=== PATIENT | male | born 1960 | race Caucasian/White ===

== ENCOUNTER 2024-04-23 11:40 | Inpatient (IN) | payer MEDICAID, OTHER ==
[~2024-04-23] VITALS: Ht 182.9 cm; Wt 74.4 kg
[2024-04-23 12:16] LABS: CARBON DIOXIDE 28 mmol/L (21-32); CHLORIDE 107 mmol/L (98-107); CREATININE 0.8 mg/dL (0.6-1.3); GLUCOSE 125 mg/dL (74-106); POTASSIUM 4.1 mmol/L (3.5-5.1); SODIUM SERUM 141 mmol/L (136-145); UREA NITROGEN, BLOOD 16 mg/dL (7-18)
[2024-04-23 12:19] LABS: BASOPHILS % (AUTO) 0.4 % (0.0-2.0); EOSINOPHILS # (AUTO) 0.2 K/uL (0.0-0.7); EOSINOPHILS % (AUTO) 4.3 % (0.0-6.0); HEMATOCRIT 44 % (39-51); HEMOGLOBIN 14.7 g/dL (13.5-17.5); LYMPHOCYTES # (AUTO) 2.3 K/uL (0.8-4.8); LYMPHOCYTES % (AUTO) 44.9 % (20.0-44.0); MEAN CORPUSCULAR HEMOGLOBIN 30 PG (26.0-33.0); MEAN CORPUSCULAR HGB CONC 34 g/dl (31.0-36.0); MEAN CORPUSCULAR VOLUME 90 fL (80-96); MONOCYTES # (AUTO) 0.6 K/uL (0.1-1.30); NEUTROPHILS % (AUTO) 39.4 % (43.0-81.0); PLATELET COUNT (AUTO) 219 K/uL (150-450); RED BLOOD CELL COUNT(AUTO) 4.86 MIL/uL (4.5-6.0); RED CELL DISTRIBUTION WIDTH 14.4 % (11.5-15.0); WHITE BLOOD COUNT (AUTO) 5.1 K/uL (4.3-11.0)
[2024-04-23 12:30] LABS: ALANINE AMINOTRANSFERASE 20 U/L (12-78); ALBUMIN 3.6 g/dL (3.4-5.0); ALKALINE PHOSPHATASE 60 U/L (46-116); ASPARTATE AMINOTRANSFERASE 17 U/L (15-37); BILIRUBIN,DIRECT 0.2 mg/dL (0.0-0.2); BILIRUBIN,TOTAL 0.8 mg/dL (0.2-1.0); NT-PRO BNP 53 pg/mL (0-125); TOTAL PROTEIN, SERUM 7.3 g/dL (6.4-8.2)
[2024-04-23] MEDS ORDERED: BISO5TAB20 PO (13:13)
[2024-04-23] MEDS ORDERED: CLOP75TA15 PO (13:13)
[2024-04-23] MEDS ORDERED: [UNRECOGNIZED DRUG - OTHER] PO (13:13)
[2024-04-23 13:20] VITALS: BP 119/90; TEMP 98.4; O2SAT 97
[2024-04-23] MEDS ORDERED: ONDANSETRON HCL/PF 4 MG/2 ML VIAL IVP PRN (14:30)
[2024-04-23] MEDS ORDERED: ZOLPIDEM TARTRATE 5 MG TABLET PO PRN (14:30)
[2024-04-23] MEDS ORDERED: MAG HYDROX/AL HYDROX/SIMETH 30 ML UDC PO PRN (14:30)
[2024-04-23] MEDS ORDERED: Z GUARD REMEDY 4 OZ OINT TP PRN (14:30)
[2024-04-23] MEDS ORDERED: ACETAMINOPHEN 325 MG TABLET PO PRN (14:30)
[2024-04-23] MEDS ORDERED: MAGNESIUM HYDROXIDE 30 ML UDC PO PRN (14:30)
[2024-04-23 16:00] VITALS: BP 111/73; TEMP 97.3; O2SAT 96
[2024-04-23 20:10] VITALS: BP 121/76; TEMP 97.9; O2SAT 99
[2024-04-23] MEDS: ENOXAPARIN SODIUM 40 MG/0.4 ML DISP.SYRIN SQ SCH (21:35)
[2024-04-24 00:06] VITALS: BP 113/72; TEMP 98.4; O2SAT 97
[2024-04-24 04:05] VITALS: BP 112/72; TEMP 98.2; O2SAT 98
[2024-04-24 06:33] LABS: BASOPHILS % (AUTO) 0.8 % (0.0-2.0); EOSINOPHILS # (AUTO) 0.3 K/uL (0.0-0.7); EOSINOPHILS % (AUTO) 6.1 % (0.0-6.0); HEMATOCRIT 42 % (39-51); HEMOGLOBIN 14.2 g/dL (13.5-17.5); LYMPHOCYTES # (AUTO) 1.9 K/uL (0.8-4.8); LYMPHOCYTES % (AUTO) 42.2 % (20.0-44.0); MEAN CORPUSCULAR HEMOGLOBIN 30 PG (26.0-33.0); MEAN CORPUSCULAR HGB CONC 34 g/dl (31.0-36.0); MEAN CORPUSCULAR VOLUME 89 fL (80-96); MONOCYTES # (AUTO) 0.5 K/uL (0.1-1.30); MONOCYTES % (AUTO) 11.6 % (2.0-12.0); NEUTROPHILS # (AUTO) 1.7 K/uL (1.8-8.9); NEUTROPHILS % (AUTO) 39.3 % (43.0-81.0); PLATELET COUNT (AUTO) 211 K/uL (150-450); RED BLOOD CELL COUNT(AUTO) 4.76 MIL/uL (4.5-6.0); RED CELL DISTRIBUTION WIDTH 14.4 % (11.5-15.0); WHITE BLOOD COUNT (AUTO) 4.4 K/uL (4.3-11.0)
[2024-04-24 06:55] LABS: THYROID STIMULATING HORMONE 1.31 uIU/mL (0.358-3.74)
[2024-04-24 07:00] LABS: CALCIUM, SERUM 8.5 mg/dL (8.5-10.1); CREATININE 0.8 mg/dL (0.6-1.3); MAGNESIUM 2.5 mg/dL (1.8-2.4); PHOSPHORUS 3.1 mg/dL (2.5-4.9); POTASSIUM 4.6 mmol/L (3.5-5.1)
[2024-04-24 07:30] VITALS: BP 134/96; TEMP 98.6; O2SAT 96
[2024-04-24] MEDS: PANTOPRAZOLE 40 MG TABLET.DR PO SCH (07:58)
[2024-04-24] MEDS: RIVAROXABAN 10 MG TABLET PO SCH (10:00)
[2024-04-24] MEDS: ATORVASTATIN 10 MG TABLET PO SCH (10:22)
[2024-04-24] MEDS: CLOPIDOGREL BISULFATE 75 MG TABLET PO SCH (10:22)
[2024-04-24 16:00] VITALS: BP 117/76; TEMP 97.3; O2SAT 94
[2024-04-24] MEDS ORDERED: IOHEXOL-350 100 ML VIAL IV ONE (16:40)
[2024-04-24] MEDS ORDERED: CT SWABBABLE VALVE TRANS SET 1 EA INFUS.SET MC ONE (16:41)
[2024-04-24] MEDS ORDERED: IV NS 0.9% 500 ML IV ONE (16:41)
[2024-04-24] MEDS ORDERED: METOPROLOL TARTRATE INJ 5 MG/5 ML AMPUL ONE (16:45)
[2024-04-24] MEDS: METOPROLOL TARTRATE INJ 5 MG/5 ML AMPUL IVP PRN (16:48)
[2024-04-24] MEDS: NITROGLYCERIN 0.4 MG/TAB BOTTLE SL ONE (16:50)
[2024-04-24 20:00] VITALS: BP 124/79; TEMP 97.5; O2SAT 96
[2024-04-25] VITALS: BP 102/63; TEMP 97.9; O2SAT 98
[2024-04-25 04:00] VITALS: BP 100/61; TEMP 97.7; O2SAT 97
[2024-04-25 07:38] LABS: BASOPHILS % (AUTO) 0.5 % (0.0-2.0); EOSINOPHILS # (AUTO) 0.2 K/uL (0.0-0.7); EOSINOPHILS % (AUTO) 5.5 % (0.0-6.0); HEMATOCRIT 42 % (39-51); LYMPHOCYTES # (AUTO) 1.4 K/uL (0.8-4.8); LYMPHOCYTES % (AUTO) 37.2 % (20.0-44.0); MEAN CORPUSCULAR HEMOGLOBIN 29 PG (26.0-33.0); MEAN CORPUSCULAR HGB CONC 33 g/dl (31.0-36.0); MEAN CORPUSCULAR VOLUME 89 fL (80-96); MONOCYTES # (AUTO) 0.4 K/uL (0.1-1.30); MONOCYTES % (AUTO) 10.2 % (2.0-12.0); NEUTROPHILS # (AUTO) 1.8 K/uL (1.8-8.9); NEUTROPHILS % (AUTO) 46.6 % (43.0-81.0); PLATELET COUNT (AUTO) 208 K/uL (150-450); RED BLOOD CELL COUNT(AUTO) 4.77 MIL/uL (4.5-6.0); RED CELL DISTRIBUTION WIDTH 14.2 % (11.5-15.0); WHITE BLOOD COUNT (AUTO) 3.8 K/uL (4.3-11.0)
[2024-04-25 08:00] VITALS: BP 101/75; TEMP 97.9; O2SAT 97
[2024-04-25] MEDS: ATENOLOL 50 MG TABLET PO SCH (08:56)
[2024-04-25 09:22] LABS: CALCIUM, SERUM 8.5 mg/dL (8.5-10.1); CREATININE 0.8 mg/dL (0.6-1.3); MAGNESIUM 2.3 mg/dL (1.8-2.4); PHOSPHORUS 3.4 mg/dL (2.5-4.9); POTASSIUM 4.1 mmol/L (3.5-5.1)
[2024-04-25 16:00] VITALS: BP 132/87; TEMP 98; O2SAT 94
[2024-04-25 20:00] VITALS: BP 113/84; TEMP 97.9; O2SAT 96
[2024-04-26] VITALS (14 sets, daily range): BP systolic 102–143; BP diastolic 66–102; TEMP 97–98.4; O2SAT 94–98
[2024-04-26] MEDS: ATORVASTATIN 40 MG TABLET PO SCH (08:28)
[2024-04-26 09:31] LABS: BASOPHILS % (AUTO) 0.5 % (0.0-2.0); EOSINOPHILS # (AUTO) 0.2 K/uL (0.0-0.7); EOSINOPHILS % (AUTO) 4.7 % (0.0-6.0); HEMATOCRIT 45 % (39-51); HEMOGLOBIN 15.1 g/dL (13.5-17.5); LYMPHOCYTES # (AUTO) 1.3 K/uL (0.8-4.8); LYMPHOCYTES % (AUTO) 36.3 % (20.0-44.0); MEAN CORPUSCULAR HEMOGLOBIN 30 PG (26.0-33.0); MEAN CORPUSCULAR HGB CONC 33 g/dl (31.0-36.0); MEAN CORPUSCULAR VOLUME 89 fL (80-96); MONOCYTES # (AUTO) 0.4 K/uL (0.1-1.30); MONOCYTES % (AUTO) 9.9 % (2.0-12.0); NEUTROPHILS # (AUTO) 1.8 K/uL (1.8-8.9); NEUTROPHILS % (AUTO) 48.6 % (43.0-81.0); PLATELET COUNT (AUTO) 237 K/uL (150-450); RED BLOOD CELL COUNT(AUTO) 5.11 MIL/uL (4.5-6.0); RED CELL DISTRIBUTION WIDTH 14.5 % (11.5-15.0); WHITE BLOOD COUNT (AUTO) 3.7 K/uL (4.3-11.0)
[2024-04-26 09:40] LABS: CALCIUM, SERUM 9.1 mg/dL (8.5-10.1); CREATININE 0.8 mg/dL (0.6-1.3); POTASSIUM 4.7 mmol/L (3.5-5.1)
[2024-04-26 09:50] LABS: PROTHROMBIN TIME 10.6 SECS (9.2-11.1)
[2024-04-26] MEDS: ADENOSINE 6 MG/2 ML VIAL IVP ONE ×2 (18:30→18:45)
[2024-04-26] MEDS ORDERED: MORPHINE SULFATE INJ 2 MG/ML DISP.SYRIN IV PRN (19:00)
[2024-04-26] MEDS: AMIODARONE 150 MG in IV D5W 100 ML IV ONE (19:16)
[2024-04-26] MEDS: AMIODARONE 450 MG in IV D5W 241 ML IV PRN (19:20)
[2024-04-27] VITALS (35 sets, daily range): BP systolic 97–130; BP diastolic 69–95; TEMP 97.2–98.6; O2SAT 96–100
[2024-04-27 04:59] LABS: BASOPHILS % (AUTO) 0.8 % (0.0-2.0); EOSINOPHILS # (AUTO) 0.2 K/uL (0.0-0.7); EOSINOPHILS % (AUTO) 2.9 % (0.0-6.0); HEMATOCRIT 44 % (39-51); HEMOGLOBIN 14.7 g/dL (13.5-17.5); LYMPHOCYTES # (AUTO) 1.6 K/uL (0.8-4.8); LYMPHOCYTES % (AUTO) 28.9 % (20.0-44.0); MEAN CORPUSCULAR HEMOGLOBIN 30 PG (26.0-33.0); MEAN CORPUSCULAR HGB CONC 34 g/dl (31.0-36.0); MEAN CORPUSCULAR VOLUME 88 fL (80-96); MONOCYTES # (AUTO) 0.6 K/uL (0.1-1.30); MONOCYTES % (AUTO) 10.4 % (2.0-12.0); NEUTROPHILS # (AUTO) 3.1 K/uL (1.8-8.9); PLATELET COUNT (AUTO) 220 K/uL (150-450); RED BLOOD CELL COUNT(AUTO) 4.95 MIL/uL (4.5-6.0); RED CELL DISTRIBUTION WIDTH 14.2 % (11.5-15.0); WHITE BLOOD COUNT (AUTO) 5.4 K/uL (4.3-11.0)
[2024-04-27 05:12] LABS: CREATININE 0.9 mg/dL (0.6-1.3); MAGNESIUM 2.5 mg/dL (1.8-2.4); PHOSPHORUS 3.7 mg/dL (2.5-4.9); POTASSIUM 4.4 mmol/L (3.5-5.1)
[2024-04-28] VITALS (36 sets, daily range): BP systolic 77–129; BP diastolic 40–90; TEMP 97.1–98.1; O2SAT 95–100
[2024-04-28 04:56] LABS: BASOPHILS # (AUTO) 0.1 K/uL (0.0-0.2); BASOPHILS % (AUTO) 1.1 % (0.0-2.0); EOSINOPHILS # (AUTO) 0.3 K/uL (0.0-0.7); EOSINOPHILS % (AUTO) 5.6 % (0.0-6.0); HEMATOCRIT 44 % (39-51); HEMOGLOBIN 14.5 g/dL (13.5-17.5); LYMPHOCYTES # (AUTO) 1.4 K/uL (0.8-4.8); LYMPHOCYTES % (AUTO) 27.7 % (20.0-44.0); MEAN CORPUSCULAR HEMOGLOBIN 30 PG (26.0-33.0); MEAN CORPUSCULAR HGB CONC 33 g/dl (31.0-36.0); MEAN CORPUSCULAR VOLUME 89 fL (80-96); MONOCYTES # (AUTO) 0.6 K/uL (0.1-1.30); MONOCYTES % (AUTO) 11.3 % (2.0-12.0); NEUTROPHILS # (AUTO) 2.8 K/uL (1.8-8.9); NEUTROPHILS % (AUTO) 54.3 % (43.0-81.0); PLATELET COUNT (AUTO) 212 K/uL (150-450); RED BLOOD CELL COUNT(AUTO) 4.92 MIL/uL (4.5-6.0); RED CELL DISTRIBUTION WIDTH 14.3 % (11.5-15.0); WHITE BLOOD COUNT (AUTO) 5.2 K/uL (4.3-11.0)
[2024-04-28 05:25] LABS: CALCIUM, SERUM 8.7 mg/dL (8.5-10.1); CREATININE 0.8 mg/dL (0.6-1.3); MAGNESIUM 2.4 mg/dL (1.8-2.4); PHOSPHORUS 3.6 mg/dL (2.5-4.9); POTASSIUM 4.1 mmol/L (3.5-5.1)
[2024-04-28] MEDS: AMIODARONE HCL 200 MG TABLET PO SCH (08:28)
[2024-04-28] MEDS: ENOXAPARIN SODIUM 80 MG/0.8 ML DISP.SYRIN SQ SCH (08:30)
[2024-04-29] VITALS: BP 110/66; TEMP 97.9; O2SAT 97
[2024-04-29 04:00] VITALS: BP 115/71; TEMP 97.7; O2SAT 95
[2024-04-29 06:42] LABS: BASOPHILS % (AUTO) 0.6 % (0.0-2.0); EOSINOPHILS # (AUTO) 0.3 K/uL (0.0-0.7); EOSINOPHILS % (AUTO) 5.2 % (0.0-6.0); HEMATOCRIT 43 % (39-51); HEMOGLOBIN 14.4 g/dL (13.5-17.5); LYMPHOCYTES # (AUTO) 1.8 K/uL (0.8-4.8); LYMPHOCYTES % (AUTO) 37.1 % (20.0-44.0); MEAN CORPUSCULAR HEMOGLOBIN 29 PG (26.0-33.0); MEAN CORPUSCULAR HGB CONC 34 g/dl (31.0-36.0); MEAN CORPUSCULAR VOLUME 88 fL (80-96); MONOCYTES # (AUTO) 0.6 K/uL (0.1-1.30); MONOCYTES % (AUTO) 11.7 % (2.0-12.0); NEUTROPHILS # (AUTO) 2.2 K/uL (1.8-8.9); NEUTROPHILS % (AUTO) 45.4 % (43.0-81.0); PLATELET COUNT (AUTO) 216 K/uL (150-450); RED CELL DISTRIBUTION WIDTH 14.2 % (11.5-15.0); WHITE BLOOD COUNT (AUTO) 4.8 K/uL (4.3-11.0)
[2024-04-29 07:21] LABS: MAGNESIUM 2.4 mg/dL (1.8-2.4); PHOSPHORUS 3.7 mg/dL (2.5-4.9); POTASSIUM 4.3 mmol/L (3.5-5.1)
[2024-04-29 08:00] VITALS: BP 113/78; TEMP 98.2; O2SAT 94
[2024-04-29 12:00] VITALS: BP 138/82; TEMP 98; O2SAT 96
[2024-04-29 16:00] VITALS: BP 123/77; TEMP 97.9; O2SAT 97
[2024-04-29 20:00] VITALS: BP 129/79; TEMP 98.6; O2SAT 96
[2024-04-30] VITALS: BP 103/74; TEMP 98.6; O2SAT 97
[2024-04-30 04:00] VITALS: BP 122/81; TEMP 98.7; O2SAT 98
[2024-04-30 08:00] VITALS: BP 117/71; TEMP 98.2; O2SAT 95
[2024-04-30 12:00] VITALS: BP 121/76; TEMP 97.4; O2SAT 95
[2024-04-30 13:39] LABS: BASOPHILS % (AUTO) 0.5 % (0.0-2.0); EOSINOPHILS # (AUTO) 0.1 K/uL (0.0-0.7); EOSINOPHILS % (AUTO) 2.4 % (0.0-6.0); HEMATOCRIT 43 % (39-51); HEMOGLOBIN 14.7 g/dL (13.5-17.5); LYMPHOCYTES % (AUTO) 38.9 % (20.0-44.0); MEAN CORPUSCULAR HEMOGLOBIN 30 PG (26.0-33.0); MEAN CORPUSCULAR HGB CONC 34 g/dl (31.0-36.0); MEAN CORPUSCULAR VOLUME 88 fL (80-96); MONOCYTES # (AUTO) 0.5 K/uL (0.1-1.30); MONOCYTES % (AUTO) 9.1 % (2.0-12.0); NEUTROPHILS # (AUTO) 2.5 K/uL (1.8-8.9); NEUTROPHILS % (AUTO) 49.1 % (43.0-81.0); PLATELET COUNT (AUTO) 258 K/uL (150-450); RED BLOOD CELL COUNT(AUTO) 4.93 MIL/uL (4.5-6.0); RED CELL DISTRIBUTION WIDTH 14.2 % (11.5-15.0); WHITE BLOOD COUNT (AUTO) 5.2 K/uL (4.3-11.0)
[2024-04-30 13:59] LABS: CALCIUM, SERUM 9.1 mg/dL (8.5-10.1); CREATININE 1.1 mg/dL (0.6-1.3); POTASSIUM 4.5 mmol/L (3.5-5.1)
[2024-04-30 14:20] LABS: MAGNESIUM 2.3 mg/dL (1.8-2.4); PHOSPHORUS 3.4 mg/dL (2.5-4.9)
[2024-04-30 16:00] VITALS: BP 123/84; TEMP 98.3; O2SAT 96
[2024-04-30] MEDS: ASPIRIN 81 MG TAB.CHEW PO SCH (17:18)
[2024-04-30 20:00] VITALS: BP 108/66; TEMP 98.2; O2SAT 95
[2024-05-01] VITALS (7 sets, daily range): BP systolic 102–122; BP diastolic 64–70; TEMP 97.5–98.1; O2SAT 96–98
[2024-05-01 07:37] LABS: BASOPHILS % (AUTO) 0.7 % (0.0-2.0); EOSINOPHILS # (AUTO) 0.2 K/uL (0.0-0.7); EOSINOPHILS % (AUTO) 3.9 % (0.0-6.0); HEMATOCRIT 43 % (39-51); HEMOGLOBIN 14.4 g/dL (13.5-17.5); LYMPHOCYTES # (AUTO) 1.6 K/uL (0.8-4.8); LYMPHOCYTES % (AUTO) 35.8 % (20.0-44.0); MEAN CORPUSCULAR HEMOGLOBIN 30 PG (26.0-33.0); MEAN CORPUSCULAR HGB CONC 34 g/dl (31.0-36.0); MEAN CORPUSCULAR VOLUME 88 fL (80-96); MONOCYTES # (AUTO) 0.5 K/uL (0.1-1.30); MONOCYTES % (AUTO) 10.6 % (2.0-12.0); NEUTROPHILS # (AUTO) 2.2 K/uL (1.8-8.9); PLATELET COUNT (AUTO) 224 K/uL (150-450); RED BLOOD CELL COUNT(AUTO) 4.82 MIL/uL (4.5-6.0); RED CELL DISTRIBUTION WIDTH 14.1 % (11.5-15.0); WHITE BLOOD COUNT (AUTO) 4.4 K/uL (4.3-11.0)
[2024-05-01 07:45] LABS: INR 1.02 (0.91-1.10); PARTIAL THROMBOPLASTIN TIME 26.3 SEC (24.3-34.3); POTASSIUM 4.2 mmol/L (3.5-5.1); PROTHROMBIN TIME 10.8 SECS (9.2-11.1)
[2024-05-01] MEDS ORDERED: IV NS 0.9% 1,000 ML ONE (11:24)
[2024-05-01] MEDS ORDERED: IV SET PRIMARY PUMP SET 1 EA INFUS.SET MC ONE (11:24)
[2024-05-01] MEDS ORDERED: IODIXANOL 150 ML IV ONE (11:25)
[2024-05-01] MEDS ORDERED: NITROGLYCERIN IN 5 % DEXTROSE 250 ML IV ONE (11:25)
[2024-05-01] MEDS ORDERED: LIDOCAINE HCL/MPF 1% 30 ML VIAL IJ ONE (11:39)
[2024-05-01] MEDS ORDERED: MIDAZOLAM HCL 2 MG/2ML VIAL ONE (12:39)
[2024-05-01] MEDS ORDERED: FENTANYL PF 100MCG/2ML AMPUL ONE (12:39)
[2024-05-01] MEDS ORDERED: HEPARIN SODIUM, PORCINE 5000 UNITS/1 ML VIAL ONE (12:51)
[2024-05-01] MEDS ORDERED: HEPARIN SODIUM, PORCINE 1,000 UNIT/ML VIAL ONE (12:51)
[2024-05-02] VITALS: BP 98/71; TEMP 98.1; O2SAT 98
[2024-05-02 04:00] VITALS: BP 114/74; TEMP 97.5; O2SAT 98
[2024-05-02 08:00] VITALS: BP 127/81; TEMP 97.9; O2SAT 94
[2024-05-02 12:00] VITALS: BP 118/80; TEMP 98.9; O2SAT 99
[2024-05-02 16:00] VITALS: BP 118/84; TEMP 98.7; O2SAT 100
[2024-05-02 20:00] VITALS: BP 112/70; TEMP 97.5; O2SAT 100
== END 2024-05-02 23:20 | disposition short-term general hospital (02) | DRG 190 ==
LOC: ER 11:48 → TELE 12:45 → ICU 04-26 18:42 → TELE1 04-28 16:40 → ICU 05-01 11:52 → TELE1 05-01 13:25
PROVIDERS: ADMIT Student in an Organized Health Care Education/Training Program; ATTEND Student in an Organized Health Care Education/Training Program
PROC: B211YZZ Fluoroscopy of Multiple Coronary Arteries using Other Contrast (ICD-10-PCS; principal; 2024-05-01)
PROC: 4A023N7 Measurement of Cardiac Sampling and Pressure, Left Heart, Percutaneous Approach (ICD-10-PCS; 2024-05-01)
PROC: B2111ZZ Fluoroscopy of Multiple Coronary Arteries using Low Osmolar Contrast (ICD-10-PCS; 2024-05-01)
PROC: B240ZZ3 Ultrasonography of Single Coronary Artery, Intravascular (ICD-10-PCS; 2024-05-01)
DX: I25.10 Atherosclerotic heart disease of native coronary artery without angina pectoris (principal); I21.A1 Myocardial infarction type 2; I47.10 Supraventricular tachycardia, unspecified; Z95.1 Presence of aortocoronary bypass graft; I10 Essential (primary) hypertension; I48.91 Unspecified atrial fibrillation; I34.0 Nonrheumatic mitral (valve) insufficiency; I25.84 Coronary atherosclerosis due to calcified coronary lesion; Z95.5 Presence of coronary angioplasty implant and graft; Z79.02 Long term (current) use of antithrombotics/antiplatelets; E78.5 Hyperlipidemia, unspecified; Z87.891 Personal history of nicotine dependence; I47.19 Other supraventricular tachycardia; Z79.899 Other long term (current) drug therapy
CPT/HCPCS: 36415; 71045-TC; 75574; 80048-TC; 80061-TC; 80076-TC; 83735-TC; 83880; 84100-TC; 84443-TC; 84484-TC; 85025-TC; 85610-TC; 85730-TC; 93307-TC; 93880-TC; A4223; G0378; J0153; J0282; J1644; J1650; J2250; J2270; J3010; J3490; J7030; J7040; J7060; Q9967